=== PATIENT | male | born 1985 | race African-American/Black ===

== ENCOUNTER 2017-02-21 21:59 | Emergency (ER) | payer OTHER ==
[~2017-02-21] VITALS: Ht 165.1 cm; Wt 81.7 kg
[2017-02-21 23:39] LABS: ABSOLUTE NEUTROPHILS 3.6 thou/uL (1.4-8.2); BASOPHILS 0.6 % (0.0-2.0); EOSINOPHILS 5.1 % (0.0-3.0); HEMATOCRIT 46.3 % (42.0-52.0); HEMOGLOBIN 15.8 gm/dL (14.0-18.0); LYMPHOCYTES 38.8 % (24.0-44.0); MCH 30.2 pg (26.0-34.0); MCHC 34.1 g/dL (28.0-37.0); MCV 88.5 fL (80.0-100.0); MONOCYTES 7.4 % (1.0-8.0); PLATELET COUNT 225 thou/uL (150-400); POLYS 48.1 % (36.0-66.0); RBC 5.23 mil/uL (4.50-6.00); WBC 7.5 thou/uL (4.0-11.0)
[2017-02-21 23:40] LABS: MANUAL DIFF NO
[2017-02-21] MEDS ORDERED: ANUSOL-HC25 MG RECTAL (23:44)
[2017-02-21] MEDS ORDERED: PROTONIX 20 MG20 M1 PO (23:44)
[2017-02-21 23:47] LABS: CALCIUM 8.4 mg/dL (8.5-10.1); POTASSIUM 3.7 mmol/L (3.5-5.1)
[2017-02-21 23:49] LABS: ALBUMIN 3.8 g/dL (3.4-5.0); TOTAL BILIRUBIN 0.4 mg/dL (<0.1-1.0); TOTAL PROTEIN 7.1 g/dL (6.4-8.2)
[2017-02-22 00:26] VITALS: BP 117/66
== END 2017-02-22 00:28 | disposition home or self-care (01) ==
LOC: ER 21:59 → EDBD 21:59 → ER 02-22 00:28
PROVIDERS: Nurse Practitioner Family
DX: K62.5 Hemorrhage of anus and rectum (principal); F17.210 Nicotine dependence, cigarettes, uncomplicated

== ENCOUNTER 2017-07-13 11:14 | Emergency (ER) | payer OTHER ==
[~2017-07-13] VITALS: Ht 162.6 cm; Wt 72.6 kg
[~2017-07-13 11:14] MED LIST: ANUSOL-HC25 MG RECTAL; PROTONIX 20 MG20 M1 PO
[2017-07-13] MEDS ORDERED: NAPROSYN500 MG PO (13:51)
[2017-07-13 14:26] VITALS: BP 129/76
== END 2017-07-13 13:56 | disposition home or self-care (01) ==
LOC: ER 11:14
DX: S46.911A Strain of unspecified muscle, fascia and tendon at shoulder and upper arm level, right arm, initial encounter (principal); F17.210 Nicotine dependence, cigarettes, uncomplicated; Z98.890 Other specified postprocedural states; X58.XXXA Exposure to other specified factors, initial encounter; Y93.89 Activity, other specified; Y92.89 Other specified places as the place of occurrence of the external cause; Y99.8 Other external cause status

== ENCOUNTER 2021-07-28 09:05 | Emergency (ER) | payer OTHER ==
[~2021-07-28] VITALS: Ht 165.1 cm; Wt 81.7 kg
[~2021-07-28 09:05] MED LIST changes: +NAPROSYN500 MG PO
[2021-07-28] MEDS ORDERED: BACTRIM DS TAB1 EACH PO (10:33)
== END 2021-07-28 10:33 | disposition home or self-care (01) ==
LOC: ER 09:05
DX: L03.211 Cellulitis of face (principal); F17.210 Nicotine dependence, cigarettes, uncomplicated; Z98.890 Other specified postprocedural states

== ENCOUNTER 2021-07-30 15:52 | Emergency (ER) | payer OTHER ==
[~2021-07-30] VITALS: Ht 165.1 cm; Wt 82.1 kg
[~2021-07-30 15:52] MED LIST changes: +BACTRIM DS TAB1 EACH PO
[2021-07-30] MEDS ORDERED: AUGMENTIN 875-1 EACH PO (19:22)
[2021-07-30 19:45] VITALS: BP 117/68
== END 2021-07-30 19:43 | disposition home or self-care (01) ==
LOC: ER 15:52
PROVIDERS: Emergency Medicine
DX: L03.211 Cellulitis of face (principal); Z20.822 Contact with and (suspected) exposure to COVID-19; R53.83 Other fatigue; M79.10 Myalgia, unspecified site; F17.210 Nicotine dependence, cigarettes, uncomplicated; Z98.890 Other specified postprocedural states